=== PATIENT | male | born 1970 | race Caucasian/White ===

== ENCOUNTER 2022-03-13 11:00 | Observation (INO) | payer OTHER ==
[~2022-03-13] VITALS: Ht 177.8 cm; Wt 81.8 kg
[2022-03-13 11:34] LABS: BASO % 0.2 % (0.0-2.0); EOS % 0.4 % (0.0-4.0); GRAN # 9.1 K/mm3 (1.4-6.5); HEMATOCRIT 46.2 % (42.0-52.0); LYMPH # 1.1 K/mm3 (1.2-3.4); LYMPH % 9.7 % (20.0-51.0); MEAN CELL VOLUME 90 fl (80.0-100.0); MEAN CORPUSCULAR HEMOGLOBIN 31 pg (27-31); MEAN CORPUSCULAR HGB CONC 35 g/dl (33.0-37.0); MEAN PLATELET VOLUME 8.9 fl (7.4-10.4); MONO % 8.4 % (1.7-9.3); PLATELET COUNT 258 K/mm3 (130-400); RED BLOOD COUNT 5.16 M/mm3 (4.20-5.60); REDCELL DISTRIBUTION WIDTH-CV 12.8 % (11.5-14.5)
[2022-03-13 12:20] LABS: ALBUMIN 4.4 gm/dL (3.5-5.0); BILIRUBIN,TOTAL 0.7 mg/dL (0.2-1.2); C-REACTIVE PROTEIN 0.55 mg/dL (0.00-0.50); CALCIUM 9.2 mg/dL (8.4-10.2); CREATININE, serum 1.09 mg/dL (0.72-1.25); POTASSIUM 4.5 mmol/L (3.5-4.5)
[2022-03-13 13:58] LABS: COLLECTION METHOD CLEAN CATCH
[2022-03-13] MEDS ORDERED: NORCO 325 MG-51 TAB PO (13:59)
[2022-03-13 14:04] LABS: MUCOUS Present (NOT PRESENT); PH 7 (5-8); SQUAMOUS EPITHELIAL 0-2 /hpf (0-10); URINE APPEARANCE Clear (CLEAR/HAZY); URINE BACTERIA Rare /hpf (NONE SEEN); URINE BILIRUBIN Negative (NEGATIVE); URINE BLOOD Negative (NEGATIVE); URINE COLOR Straw (YELLOW); URINE GLUCOSE Negative (NEGATIVE); URINE KETONE 1+ (NEGATIVE); URINE LEUKOCYTE ESTERASE Negative (NEGATIVE); URINE NITRATE Negative (NEGATIVE); URINE PROTEIN(semi-quant) Negative (NEGATIVE); URINE RBC 0-2 /hpf (0-2); URINE UROBILINOGEN Negative (NEGATIVE)
[2022-03-13 18:15] VITALS: BP 131/86; PULSE 64; TEMP 97.6
--- NOTE | 2022-03-13 18:15 | NUR ---
PATIENT ADMITED INTO ROOM 322 POST OP CYSTO WITH RIGHT STENT PLACEMENT. A&O. VSS. DENIES PAIN OR NAUSEA. NOT VOIDED POST OP YET. HEAD TO TOE ASSESSMENT COMPLETE. PAT[place] AND HOPING TO DISCHARGE HOME SOON. EDUCATED ABOUT DISCHARGE CRITERIA. ORIENTED TO ROOM. CALL LIGHT IN REACH.
[2022-03-13 18:30] VITALS: BP 130/77; PULSE 79
[2022-03-13 18:45] VITALS: BP 116/78; PULSE 64
[2022-03-13 19:00] VITALS: BP 112/65; PULSE 64; TEMP 97.6
[2022-03-13 19:30] VITALS: BP 139/87; PULSE 80; TEMP 97.6
--- NOTE | 2022-03-13 19:30 | NUR ---
Pt. has met discharge criteria. Pt. given discharge paperwork, education and information on scripts. Pt. voices understanding. INT discontinued from lt. forearm. Pt. dressed and ambulated out with ENEDELIA Velasco.
== END 2022-03-13 19:30 | disposition home or self-care (01) ==
LOC: COL.ER 11:00 → SURG 15:34
PROVIDERS: Family Medicine; ADMIT Urology
DX: N13.2 Hydronephrosis with renal and ureteral calculous obstruction (principal); F17.290 Nicotine dependence, other tobacco product, uncomplicated
CPT/HCPCS: C1769; C2617; G0378; J0690; J1100; J1885; J2270; J2405; J2704; J3010; J7120; Q9967